=== PATIENT | male | born 1945 | race Caucasian/White ===

== ENCOUNTER 2016-05-06 17:41 | Emergency (ER) | payer OTHER, MEDICARE ==
[~2016-05-06] VITALS: Ht 172.7 cm; Wt 86.0 kg
[~2016-05-06 17:41] MED LIST: AMLODIPINE BESYL5 MG PO; ANALGESIC325 MG PO; APAP-BUTALBITA1 EACH PO; ASACOL400 MG PO; ASPIR 8181 M1 PO; ASPIRIN81 M1 PO; ATENOLOL50 M1 PO; ATIVAN0.5 MG PO; BENTYL20 MG PO; BUTALB-CAFF-AC1 EACH PO; CETIRIZINE HCL10 M2 PO; CLARITIN,ALAVAR10 MG PO; CLARITIN10 M3 PO; COUMADIN,JANTOVE5 MG PO; COZAAR25 MG PO; CRESTOR20 MG PO; IMODIUM MS REL1 EACH PO; LANSOPRAZOLE30 MG PO; LIPITOR40 MG PO; LOPRESSOR100 M1 PO; LOSARTAN POTASS25 MG PO; METOPROLOL SUCC25 MG PO; METOPROLOL TART25 MG PO; NITROGLYCERIN0.4 MG PO; NITROSTAT0.4 MG SL; NORVASC5 MG PO; PEPCID40 MG PO; PERCOCET 5/31 TABLET PO; PLAVIX75 MG PO; PREDNISONE20 MG PO; PROTONIX40 MG PO; Pepcid PO; RESTASIS 01 DROP/0.4; SIMVASTATIN40 M1 PO; ULTRAM50 MG PO; ZOFRAN4 MG PO; ZOLOFT100 MG PO; [UNRECOGNIZED DRUG - OTHER] PO; [UNRECOGNIZED DRUG - OTHER] PO
[2016-05-06 18:22] LABS: HEMATOCRIT 40.7 % (38.0-50.0); MCH 33.1 PG (29.0-34.0); MCHC 34.9 G/DL (30.0-36.0); MCV 94.9 FL (86-99); MEAN PLAT.VOLUME 9.2 uM^3 (9.0-12.4); PLATELET COUNT 201 K/uL (156-360); RBC DIS.WIDTH-CV 12.8 % (11.8-14.6); RBC DIS.WIDTH-SD 42.5 % (39-53); RED BLOOD COUNT 4.29 M/uL (4.00-5.50); WHITE BLOOD COUNT 7.2 K/uL (4.1-10.2)
[2016-05-06 18:33] LABS: CHLORIDE 109 mEq/L (99-109); POTASSIUM 3.6 mEq/L (3.7-5.4); SODIUM 142 mEq/L (136-147)
[2016-05-06 18:34] LABS: GLUCOSE 118 mg/dL (70-99)
[2016-05-06 18:36] LABS: ANION GAP 11 MEQ/L (2-14)
[2016-05-06 18:38] LABS: GFR ESTIMATE (CALCULATED) > 59 mL/min/
[2016-05-06 18:39] LABS: UREA NITROGEN (BUN) 18 mg/dL (9-23)
[2016-05-06 18:44] LABS: TROP-I INTERPRETATION NEGATIVE; TROPONIN-I < 0.01 ng/mL (0.0-0.30)
[2016-05-06] MEDS ORDERED: TESSALON PERLE100 MG PO (19:13)
[2016-05-06] MEDS ORDERED: PHENERGAN-CODE120 ML PO (19:16)
[2016-05-06 19:52] VITALS: BP 141/84
== END 2016-05-06 19:54 | disposition home or self-care (01) ==
LOC: EME 17:41
DX: J06.9 Acute upper respiratory infection, unspecified (principal); I10 Essential (primary) hypertension; I25.2 Old myocardial infarction; K21.9 Gastro-esophageal reflux disease without esophagitis; Z85.820 Personal history of malignant melanoma of skin; Z86.711 Personal history of pulmonary embolism; Z98.61 Coronary angioplasty status; Z87.442 Personal history of urinary calculi; Z79.82 Long term (current) use of aspirin
CPT/HCPCS: 71020; 80048; 84484; 85027; 93005; 99281; 99284